=== PATIENT | male | born 1995 | race Caucasian/White ===

== ENCOUNTER 2016-10-20 06:27 | Emergency (ER) | payer OTHER ==
[~2016-10-20] VITALS: Ht 180.3 cm; Wt 76.7 kg
[2016-10-20] MEDS ORDERED: IBUP600T26 PO (08:16)
[2016-10-20 08:25] VITALS: BP 108/64
[2016-10-21] MEDS ORDERED: NAPR500T PO (05:32)
== END 2016-10-20 08:26 | disposition home or self-care (01) ==
LOC: M ED 08:00
DX: S29.011A Strain of muscle and tendon of front wall of thorax, initial encounter (principal); X58.XXXA Exposure to other specified factors, initial encounter; Y92.89 Other specified places as the place of occurrence of the external cause; Y93.89 Activity, other specified; Y99.8 Other external cause status

== ENCOUNTER 2016-10-21 02:38 | Emergency (ER) | payer OTHER ==
[~2016-10-21] VITALS: Ht 180.3 cm; Wt 76.7 kg
[~2016-10-21 02:38] MED LIST: IBUP600T26 PO
[2016-10-21] MEDS ORDERED: NS 1,000 ML IV ONE (04:00)
[2016-10-21] MEDS ORDERED: KETOROLAC 30 MG/ML VIAL (J1885) IV ONE (04:00)
[2016-10-21 04:14] LABS: BASO % 0.5 % (0.0-1.0); EOS # 0.2 K/mm3 (0.0-0.50); EOS % 3.3 % (0.0-3.0); LARGE UNSTAINED CELL # 0.1 K/mm3 (0.0-0.4); LARGE UNSTAINED CELL % 1.9 % (0.0-4.0); LYMPH # 1.7 K/mm3 (1.5-6.5); LYMPH % 26.2 % (24.0-44.0); MEAN CORPUSCULAR HEMOGLOBIN 30.1 pg (27.0-33.0); MEAN CORPUSCULAR HGB CONC 33.7 g/dl (32.0-36.5); MEAN CORPUSCULAR VOLUME 89.2 fl (80.0-96.0); MONO # 0.4 K/mm3 (0.0-0.8); MONO % 6.5 % (0.0-5.0); NEUTROPHILS # 3.9 K/mm3 (1.8-7.7); NEUTROPHILS % 61.6 % (36.0-66.0); PLATELET COUNT, AUTOMATED 176 k/mm3 (150-450); RED CELL DISTRIBUTION WIDTH 11.8 % (11.5-14.5); WHITE BLOOD COUNT 6.3 K/mm3 (4.0-10.0)
[2016-10-21 04:34] LABS: ANION GAP 7 MEQ/L (8-16); BLOOD UREA NITROGEN 18 MG/DL (7-18); CARBON DIOXIDE LEVEL 28 MEQ/L (21-32); CHLORIDE LEVEL 105 MEQ/L (98-107); CREATININE FOR GFR 0.76 MG/DL (0.70-1.30); GLOMERULAR FILTRATION RATE > 60.0 (>60); GLUCOSE, FASTING 94 MG/DL (70-105); POTASSIUM SERUM 3.9 MEQ/L (3.5-5.1); SODIUM LEVEL 140 MEQ/L (136-145)
[2016-10-21] MEDS ORDERED: NAPR500T PO (05:32)
[2016-10-21 05:40] VITALS: BP 104/67
--- NOTE | 2016-10-21 07:56 | REP ---
Clinical: Trauma. Technique: Frontal view of the chest with multiple views of the right hemithorax. Findings: Frontal view of the chest demonstrates no acute cardiopulmonary process. Multiple views of the right hemithorax demonstrates no obvious acute rib fracture or pathology. Impression: Normal right rib series Signed by George Marks MD 10/21/2016 07:49 A
--- NOTE | 2016-10-21 09:59 | ECGEPIP ---
Stationary ECG Study [facility] - ED Test Date: 2016-10-21 Pat Name: CONY VANCE Department: Room: - Gender: M [employer]ating Repair Technician: HoffmannB: 1995 Requested By: SULMA Blum Order Number: [id number] Reading MD: Chata Garner Measurements Intervals [place] Rate: 67 P: 54 IA: 166 QRS: 61 QRSD: 106 T: 33 QT: 375 QTc: 397 Interpretive Statements SINUS RHYTHM WITH SINUS ARRHYTHMIA POSSIBLE RIGHT VENTRICULAR CONDUCTION DELAY NO PRIOR FOR COMPARISON Electronically Signed On 10-21-2016 9:09:07 EDT by Chata Garner
== END 2016-10-21 05:45 | disposition home or self-care (01) ==
LOC: M ED 03:39
DX: R07.89 Other chest pain (principal)
CPT/HCPCS: 71101; 80048; 85025; 85379; 93005; 96361; 96374; 99283; J1885